=== PATIENT | female | born 1940 | race Caucasian/White ===

== ENCOUNTER → 2016-12-22 | Outpatient (CLI) | payer OTHER, MEDICARE ==
[~2016-12-22] MED LIST: BIOSIL PO; CLARITIN10 MG PO; COSOPT PF EYE1 EACH OP; HYDROCODONE-AP1 EAC6 PO; IBUPROFEN 800800 M1 PO; ICAPS MV TABLE1 EAC1 PO; LISINOPRIL5 MG PO; LUTEIN20 MG PO; LUTEIN40 MG PO; MOBIC7.5 MG PO; MULTI VITAMIN1 EACH PO; NEURONTIN 300300 M1 PO; OMEGA-31000 M1 PO; PROBIOTIC1 EAC1 PO; VITAMIN D1000 UNI2 PO; VITAMIN D2000 UNIT PO
== END ==
LOC: MRI 08:57
DX: M47.816 Spondylosis without myelopathy or radiculopathy, lumbar region (principal); M48.06 Spinal stenosis, lumbar region; M54.5 Low back pain

== ENCOUNTER → 2019-05-23 | Outpatient (CLI) | payer OTHER, MEDICARE ==
[2019-05-23 10:13] LABS: CREATININE 0.7 mg/dL (0.6-1.0)
== END ==
LOC: LABMALL 09:32
PROVIDERS: Nurse Practitioner Pediatrics
DX: M47.816 Spondylosis without myelopathy or radiculopathy, lumbar region (principal)